=== PATIENT | male | born 1980 | race Caucasian/White ===

== ENCOUNTER 2016-12-03 08:35 | Emergency (ER) | payer OTHER ==
--- NOTE | 2016-12-03 08:43 | EDPHY ---
H & P Smoking Status: Never smoked HPI/ROS: CHIEF COMPLAINT: Fever, sore throat, cough. HISTORY OF PRESENT ILLNESS: This is a 36-year-old otherwise healthy male presenting with fever, sore throat, and intermittently productive cough with yellow/green sputum. His symptoms began with a gradual onset cough on Monday. He then developed a subjective fever night that his believes was close to 102 degrees, however she did not use a thermometer. Cough is now severe and has been keeping him awake at night. He admits associated intermittent chills. He denies rash, vomiting, diarrhea. He does have recent sick contact with family members as his and kids have all been sick with colds, no where sick as he and wihtout fevers. He has been treating his symptoms with Ibuprofen twice a day to small effect. He did not get a flu shot this year. REVIEW OF SYSTEMS: Constitutional: As above. Eyes: No diplopia. ENT: As above. Cardiovascular: No chest pain, no palpitations. Respiratory: As above. Gastrointestinal: No nausea vomiting or diarrhea. No abdominal pain. Genitourinary: No hematuria or frequency. Musculoskeletal: No back pain. Skin: No rashes. Neurological: No headache. 10 point ROS otherwise negative (Augusto Polo) Past Medical/Surgical History: Denies. (Augusto Polo) Social History: Nonsmoker, here with . (Augusto Polo) Physical Exam: General Appearance: Alert, no distress. Normal phonation. No respiratory distress. Eyes: Pupils equal and round no pallor or injection. No icterus ENT, Mouth: Mucous membranes moist. Pharynx erythematous without exudate, or tonsillar swelling. TM Clear. Neck: No adenopathy. Supple. No JVD. Trachea in midline. Respiratory: There are no retractions, lungs are clear to auscultation. Cardiovascular: Regular rate and rhythm. Abdomen: Soft and nontender, no masses, bowel sounds normal. Neurological: Ox3. No motor weakness. Sensation intact. Gait nl. Skin: Warm and dry, no rashes. Musculoskeletal: No joint swelling. Extremities: No edema. Homans sign negative. No cords. Psychiatric: Patient is oriented X 3, there is no agitation (Augusto Polo) Constitutional: Initial Vital Signs Temperature (C) 38.2 C 12/03/16 08:49 Heart Rate 109 H 12/03/16 08:49 Respiratory Rate 20 12/03/16 08:49 Blood Pressure 134/88 H 12/03/16 08:49 O2 Sat (%) 95 12/03/16 08:49 O2 Delivery Mode Room Air Allergies/Adverse Reactions: cefaclor [From Ceclor] Allergy (Verified 12/03/16 08:46) Home Medications: Medication Instructions Recorded Hydrocodone/APAP 5/325 [Menno 1 - 2 tab PO Q4H PRN #20 tab 08/09/16 5/325 (RX)] Lexapro 08/09/16 Benzonatate 200 mg PO TID PRN #28 capsule 12/03/16 Hydrocodone/APAP 5/325 [Menno 1 - 2 tab PO Q6H PRN #16 tab 12/03/16 5/325 (*)] Medical Decision Making ED Course/Re-evaluation: Influenza swab and strep swab sent to the lab. 1 tab PO Hydrocodone administered for sore throat and cough. 0908: Patient's flu swab returns positive for Influenza B. I reassessed the patient at this time and discussed these results with him. Patient is not Medicare nor old enough to be qualified such thus the PQRS is not necessary at this time. (Augusto Polo) Differential Diagnosis: ED differential includes influenza, strep throat, URI, pneumonia. I do not see any clinical signs on exam to suggest this is an monitor process. Certainly if he continues to be ill beyond 2-3 more days or shows worsening symptomatology and a chest x-ray would be indicated at that time. Going forward or recommend symptomatic management with Tylenol/ibuprofen for fever control. Vicodin for the cough without Tylenol. And benzonatate with a cough is necessary to be suppressed but without the throat pain that required Vicodin. (Augusto Polo) Other Provider: This patient was not seen by myself. My name should not be assigned to this chart. (Verna Trujillo) - Data Points Medications Given: Discontinued Medications Acetaminophen/Hydrocodone Bitart (Menno 5/325) 1 tab PO EDNOW ONE Stop: 12/03/16 08:58 Last Admin: 12/03/16 09:02 Dose: 1 tab Departure - Departure Disposition: Home, Routine, Self-Care Clinical Impression: Influenza B Condition: Good Instructions: Influenza (ED) Additional Instructions: Take Vicodin as prescribed for throat pain and cough. Do not take Tylenol with Vicodin however as they already has Tylenol in it. As an alternative, take benzonatate for the cough. With both of these above medications your allowed to take ibuprofen. Follow up with your primary care provider in the next 2-3 days if symptoms are not improving. Return to the Urgent Care or visit the emergency department for any serious worsening of condition. Referrals: George Junoir DO [Primary Care Provider] - As per Instructions Stand Alone Forms: Work Excuse Prescriptions: Benzonatate 200 mg PO TID PRN #28 capsule PRN Reason: Cough, Moderate Hydrocodone/APAP 5/325 [Menno 5/325 (*)] 1 - 2 tab PO Q6H PRN #16 tab PRN Reason: Cough, Moderate Report Scribed for: Augusto Polo Report Scribed by: Lizandro Powell Date of Report: 12/03/16 Time of Report: 08:56
[2016-12-03] MEDS ORDERED: HYDROCODONE/APAP 5/325 TAB PO ONE (08:57)
[2016-12-03 09:02] VITALS: BP 134/88; PULSE 109; RESP 20; TEMP 100.8; O2SAT 95
== END 2016-12-03 09:53 | disposition home or self-care (01) ==
LOC: CED 08:35
DX: J10.1 Influenza due to other identified influenza virus with other respiratory manifestations (principal)
CPT/HCPCS: 87400-PO; 87880-PO; G0463-PO

== ENCOUNTER 2017-04-16 18:29 | Emergency (ER) | payer OTHER ==
--- NOTE | 2017-04-16 18:48 | EDPHY ---
H & P Time Seen by Provider: 04/16/17 18:47 HPI/ROS: Chief complaint. Laceration HPI. 36-year-old male with laceration to the left forearm that occurred more than 12 hours ago. He broken on a plate glass window in the garage. No sense of retained foreign body. He did clean it but put a Band-Aid on there and nose that is continued to ooze a little bit. Denies focal weakness or paresthesias. No other injuries. He is current on his tetanus immunization ROS Constitutional. no fever/chills, no weakness Eyes. no problems with vision ENT. no sore throat, no nasal drainage Cardiovascular. no chest pain Respiratory. no shortness of breath, no cough Abdominal. no abdominal pain, no nausea/vomiting, no diarrhea . no problems urinating MS. no calf pain/swelling, no neck/back pain, no joint pain Skin. Laceration left forearm Lymph. no swollen glands Neuro. no headache, no dizziness, no difficulty walking or with speech Past Medical/Surgical History: Appendectomy Social History: Single, nonsmoker, no alcohol Smoking Status: Never smoked Physical Exam: General Appearance: Alert well-developed male mild distress vital signs stable Eyes: Pupils equal and round no pallor or injection. ENT, Mouth: Mucous membranes are moist. Respiratory: There are no retractions, lungs are clear to auscultation. Cardiovascular: Regular rate and rhythm. Gastrointestinal: Abdomen is soft and nontender, no masses, bowel sounds normal. Neurological: Awake and alert, sensory and motor exams grossly normal. Skin: 1.5 cm laceration to the lateral aspect left mid forearm. No evidence for foreign body. No evidence for infection. Distal motor vascular sensitivity is intact Musculoskeletal: Neck is supple nontender. Extremities symmetrical, full range of motion. Psychiatric: Patient is oriented X 3, there is no agitation. Constitutional: Initial Vital Signs Temperature (C) 37.1 C 04/16/17 18:40 Heart Rate 80 04/16/17 18:40 Respiratory Rate 16 04/16/17 18:40 Blood Pressure 139/96 H 04/16/17 18:40 O2 Sat (%) 97 04/16/17 18:40 O2 Delivery Mode Room Air Allergies/Adverse Reactions: cefaclor [From [facility]] Allergy (Verified 12/03/16 08:46) Home Medications: Medication Instructions Recorded Lexapro 08/09/16 Medical Decision Making Procedures: The wound is cleaned. Due to it's age it was Steri-Strips with good approximation. ED Course/Re-evaluation: Patient and I discussed treatment plan including criteria for return and infection potential the wound. He expresses understanding and agreement Differential Diagnosis: Greater than 12 hours old laceration. I considered infection potential and retained foreign body. Departure - Departure Disposition: Home, Routine, Self-Care Clinical Impression: Laceration Condition: Good Instructions: Laceration (ED) Additional Instructions: Keep the cut clean and dry. You may shower with the Steri-Strips on. Return for signs of infection. Steri-Strips on 7-10 days. Referrals: George Junior DO [Primary Care Provider] - As per Instructions
[2017-04-16 18:50] VITALS: PULSE 80; RESP 16; TEMP 98.8
[2017-04-16 19:10] VITALS: BP 136/96; O2SAT 95
== END 2017-04-16 19:12 | disposition home or self-care (01) ==
LOC: CED 18:29
DX: S51.812A Laceration without foreign body of left forearm, initial encounter (principal); W25.XXXA Contact with sharp glass, initial encounter